=== PATIENT | male | born 1970 | race Caucasian/White ===

== ENCOUNTER 2017-08-09 05:36 | Emergency (ER) | payer OTHER ==
[~2017-08-09] VITALS: Ht 177.8 cm; Wt 78.0 kg
[2017-08-09 06:01] VITALS: BP 126/92; PULSE 80; RESP 18; TEMP 97.6; O2SAT 98
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
[2017-08-09 07:07] LABS: AUTOMATED NEUTROPHIL # 3.5 TH/MM3 (1.8-7.7); BASOPHIL # 0.1 TH/MM3 (0-0.2); BASOPHIL % 0.7 % (0.0-2.0); EOSINOPHIL # 0.4 TH/MM3 (0-0.4); EOSINOPHIL % 5.2 % (0.0-4.0); HEMATOCRIT 36.6 % (39.0-51.0); HEMOGLOBIN 12.8 GM/DL (13.0-17.0); LYMPH % 36.3 % (9.0-44.0); LYMPHOCYTE # 2.6 TH/MM3 (1.0-4.8); MEAN CELL VOLUME 100.6 FL (80.0-100.0); MEAN CORPUSCULAR HGB CONC 34.8 % (32.0-36.0); MEAN PLATELET VOLUME 7.4 FL (7.0-11.0); MONO % 9.6 % (0.0-8.0); MONOCYTE # 0.7 TH/MM3 (0-0.9); NEUT % 48.2 % (16.0-70.0); PLATELET COUNT 190 TH/MM3 (150-450); RED BLOOD COUNT 3.64 MIL/MM3 (4.50-5.90); RED CELL DISTRIBUTION WIDTH 12.2 % (11.6-17.2); WHITE BLOOD COUNT 7.3 TH/MM3 (4.0-11.0)
[2017-08-09 07:25] LABS: BICARBONATE 27.3 MEQ/L (21.0-32.0); CALCIUM 9.6 MG/DL (8.5-10.1); CREATININE 0.73 MG/DL (0.60-1.30)
[2017-08-09 14:10] VITALS: BP 110/60; PULSE 86; RESP 18; O2SAT 98
[2017-08-10 01:59] VITALS: BP 136/71; PULSE 103; RESP 18; O2SAT 99
== END 2017-08-10 02:29 ==
LOC: NEPD 05:36 → MERGE 05:36 → NEPJ 08-10 02:29
DX: F19.94 Other psychoactive substance use, unspecified with psychoactive substance-induced mood disorder (principal); F10.129 Alcohol abuse with intoxication, unspecified; F31.9 Bipolar disorder, unspecified; F41.9 Anxiety disorder, unspecified; F03.90 Unspecified dementia, unspecified severity, without behavioral disturbance, psychotic disturbance, mood disturbance, and anxiety; F20.9 Schizophrenia, unspecified; R56.9 Unspecified convulsions; F17.200 Nicotine dependence, unspecified, uncomplicated
CPT/HCPCS: 80048; 80307; 84443; 85025; 99285

== ENCOUNTER 2017-08-17 15:51 | Emergency (ER) | payer SELFPAY ==
[2017-08-17 16:13] VITALS: BP 134/83; PULSE 97; RESP 18; TEMP 98.5; O2SAT 97
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
== END 2017-08-17 20:28 | disposition home or self-care (01) ==
LOC: NEDAMB 15:51 → NEPD 20:28
DX: F10.229 Alcohol dependence with intoxication, unspecified (principal); R51 Headache; M54.2 Cervicalgia; M50.31 Other cervical disc degeneration, high cervical region; M50.322 Other cervical disc degeneration at C5-C6 level; F31.9 Bipolar disorder, unspecified; I10 Essential (primary) hypertension; F17.200 Nicotine dependence, unspecified, uncomplicated; W01.0XXA Fall on same level from slipping, tripping and stumbling without subsequent striking against object, initial encounter
CPT/HCPCS: 70450; 72125

== ENCOUNTER 2017-09-07 20:36 | Emergency (ER) | payer SELFPAY ==
[~2017-09-07] VITALS: Ht 170.2 cm; Wt 70.0 kg
[2017-09-07 21:02] VITALS: BP 135/85; PULSE 89; RESP 16; TEMP 97.7; O2SAT 99
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
== END 2017-09-08 06:38 | disposition home or self-care (01) ==
LOC: NEDAMB 20:36
DX: F10.220 Alcohol dependence with intoxication, uncomplicated (principal); F31.9 Bipolar disorder, unspecified; F03.90 Unspecified dementia, unspecified severity, without behavioral disturbance, psychotic disturbance, mood disturbance, and anxiety; I10 Essential (primary) hypertension
CPT/HCPCS: 99282

== ENCOUNTER 2017-09-28 23:09 | Emergency (ER) | payer SELFPAY ==
[~2017-09-28] VITALS: Ht 180.3 cm; Wt 72.0 kg
[2017-09-28 23:53] VITALS: BP 114/68; PULSE 95; RESP 16; TEMP 98.1; O2SAT 98
[2017-09-29 06:12] VITALS: BP 116/68; PULSE 82; RESP 20; TEMP 98.2; O2SAT 98
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
== END 2017-09-29 09:15 | disposition home or self-care (01) ==
LOC: NEDAMB 23:09 → NEPD 09-29 09:15
DX: F10.129 Alcohol abuse with intoxication, unspecified (principal); Y90.8 Blood alcohol level of 240 mg/100 ml or more; F31.9 Bipolar disorder, unspecified; F41.9 Anxiety disorder, unspecified; I10 Essential (primary) hypertension; F20.9 Schizophrenia, unspecified; F17.200 Nicotine dependence, unspecified, uncomplicated; F12.90 Cannabis use, unspecified, uncomplicated; F14.90 Cocaine use, unspecified, uncomplicated
CPT/HCPCS: 99281

== ENCOUNTER 2017-09-30 22:48 | Emergency (ER) | payer OTHER ==
[2017-09-30 23:40] LABS: ALBUMIN 3.9 GM/DL (3.4-5.0); ALT (GPT) 101 U/L (12-78); AST (GOT) 208 U/L (15-37); BLOOD UREA NITROGEN 5 MG/DL (7-18); CALCIUM 8.9 MG/DL (8.5-10.1); CHLORIDE 94 MEQ/L (98-107); CREATININE 0.83 MG/DL (0.60-1.30); GLOMERULAR FILTRATION RATE 98 ML/MIN (>89); GLUCOSE,RANDOM 110 MG/DL (74-106); SODIUM (NA) 133 MEQ/L (136-145)
[2017-09-30 23:45] LABS: ALKALINE PHOSPHATASE 114 U/L (45-117); TOTAL BILIRUBIN ADULT 0.4 MG/DL (0.2-1.0); TOTAL PROTEIN 8.3 GM/DL (6.4-8.2)
[2017-10-01 00:02] LABS: AUTOMATED NEUTROPHIL # 2.4 TH/MM3 (1.8-7.7); BASOPHIL # 0.1 TH/MM3 (0-0.2); BASOPHIL % 1.2 % (0.0-2.0); EOSINOPHIL # 0.1 TH/MM3 (0-0.4); EOSINOPHIL % 1.8 % (0.0-4.0); HEMATOCRIT 35.3 % (39.0-51.0); HEMOGLOBIN 12.3 GM/DL (13.0-17.0); LYMPH % 33.3 % (9.0-44.0); LYMPHOCYTE # 1.6 TH/MM3 (1.0-4.8); MEAN CELL VOLUME 99.1 FL (80.0-100.0); MEAN CORPUSCULAR HEMOGLOBIN 34.6 PG (27.0-34.0); MEAN CORPUSCULAR HGB CONC 34.9 % (32.0-36.0); MEAN PLATELET VOLUME 7.7 FL (7.0-11.0); MONO % 12.2 % (0.0-8.0); MONOCYTE # 0.6 TH/MM3 (0-0.9); NEUT % 51.5 % (16.0-70.0); PLATELET COUNT 84 TH/MM3 (150-450); RED BLOOD COUNT 3.57 MIL/MM3 (4.50-5.90); RED CELL DISTRIBUTION WIDTH 13.5 % (11.6-17.2); WHITE BLOOD COUNT 4.7 TH/MM3 (4.0-11.0)
[2017-10-01 00:23] LABS: BILIRUBIN, URINE NEG (NEG); BLOOD, URINE NEG (NEG); GLUCOSE,URINE NEG (NEG); KETONE, URINE NEG (NEG); NITRITE,URINE NEG (NEG); PH, URINE 5.5 (5.0-8.5); URINE COLOR YELLOW (YELLW/STRAW); URINE LEUKOCYTE ESTERASE NEG (NEG)
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
[2017-10-01 12:37] VITALS: BP 135/75; PULSE 88; RESP 14; O2SAT 97
[2017-10-01] MEDS ORDERED: NYST15T TOPICAL (12:48)
--- NOTE | 2017-10-01 12:48 | PD ---
Data Data Last Documented VS Vital Signs Date Time Temp Pulse Resp B/P (MAP) Pulse Ox O2 Delivery O2 Flow Rate FiO2 10/01/17 13:43 10/01/17 12:37 88 14 97 Room Air Orders Orders Complete Blood Count With Diff (09/30/17 23:09) Comprehensive Metabolic Panel (09/30/17 23:09) Urinalysis - C+S If Indicated (09/30/17 23:09) Psych Screen (09/30/17 23:09) Drug Screen, Random Urine (09/30/17 23:09) Alcohol (Ethanol) (09/30/17 23:09) Diet Regular Basic (10/01/17 Breakfast) Ed Discharge Order (10/01/17 12:48) Labs Laboratory Tests Test 09/30/17:18 10/01/17 00:02 White Blood Count 4.7 TH/MM3 Red Blood Count 3.57 MIL/MM3 Hemoglobin 12.3 GM/DL Hematocrit 35.3 % Mean Corpuscular Volume 99.1 FL Mean Corpuscular Hemoglobin 34.6 PG Mean Corpuscular Hemoglobin Concent 34.9 % Red Cell Distribution Width 13.5 % Platelet Count 84 TH/MM3 Mean Platelet Volume 7.7 FL Neutrophils (%) (Auto) 51.5 % Lymphocytes (%) (Auto) 33.3 % Monocytes (%) (Auto) 12.2 % Eosinophils (%) (Auto) 1.8 % Basophils (%) (Auto) 1.2 % Neutrophils # (Auto) 2.4 TH/MM3 Lymphocytes # (Auto) 1.6 TH/MM3 Monocytes # (Auto) 0.6 TH/MM3 Eosinophils # (Auto) 0.1 TH/MM3 Basophils # (Auto) 0.1 TH/MM3 CBC Comment AUTO DIFF Differential Comment AUTO DIFF CONFIRMED Platelet Estimate LOW Platelet Morphology Comment NORMAL Blood Urea Nitrogen 5 MG/DL Creatinine 0.83 MG/DL Random Glucose 110 MG/DL Total Protein 8.3 GM/DL Albumin 3.9 GM/DL Calcium Level 8.9 MG/DL Alkaline Phosphatase 114 U/L Aspartate Amino Transf (AST/SGOT) 208 U/L Alanine Aminotransferase (ALT/SGPT) 101 U/L Total Bilirubin 0.4 MG/DL Sodium Level 133 MEQ/L Potassium Level 3.5 MEQ/L Chloride Level 94 MEQ/L Carbon Dioxide Level 27.0 MEQ/L Anion Gap 12 MEQ/L Estimat Glomerular Filtration Rate 98 ML/MIN Ethyl Alcohol Level 390 MG/DL Urine Color YELLOW Urine Turbidity CLEAR Urine pH 5.5 Urine Specific [place] 1.005 Urine Protein NEG mg/dL Urine Glucose (UA) NEG mg/dL Urine Ketones NEG mg/dL Urine Occult Blood NEG Urine Nitrite NEG Urine Bilirubin NEG Urine Urobilinogen LESS THAN 2.0 MG/DL Urine Leukocyte Esterase NEG Microscopic Urinalysis Comment CULT NOT INDICATED Urine Opiates Screen NEG Urine Barbiturates Screen NEG Urine Amphetamines Screen NEG Urine Benzodiazepines Screen NEG Urine Cocaine Screen NEG Urine Cannabinoids Screen NEG MDM Supervised Visit with NOLBERTO: Yes Narrative Course Patient seen and examined by me at 12:40 PM, was just seen by Edmundo MILLER for the psychiatric service she does not believe the patient be up to himself nor others, he has multiple presentations this emergency department for alcohol and alcohol-related events. He is clinically sober at this time is been given ample opportunity metabolize probably all of the alcohol that was in his system when he was here, at this time he adamantly denies suicidal or homicidal ideation states he wants to get help for his alcohol, he has no medical complaint to warrant further workup at this time. He was made small note of a tinea capitis will be placed on nystatin cream. He is stable for discharge. I have lifted his García act as he no longer meets criteria for involuntary stay in the hospital Diagnosis Primary Impression: Medical clearance for psychiatric admission Additional Impression: Alcohol dependence with acute alcoholic intoxication Qualified Codes: F10.220 - Alcohol dependence with intoxication, uncomplicated Referrals: [facility] Pt SpecificInfo: Prescription(s) given Scripts Nystatin Topical (Nystatin Topical) 100,000 unit/gm Cream 1 APPLIC TOPICAL BID for Infection, #15 GM 0 Refills Prov: Alexei Peralta MD 10/01/17 Disposition: 01 DISCHARGE HOME Condition: Stable Alexei Peralta MD Oct 01, 2017 12:48
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
== END 2017-10-01 13:44 | disposition home or self-care (01) ==
LOC: NEDAMB 22:48 → NEPD 10-01 13:44
DX: F10.220 Alcohol dependence with intoxication, uncomplicated (principal); Y90.8 Blood alcohol level of 240 mg/100 ml or more; R45.850 Homicidal ideations; F31.9 Bipolar disorder, unspecified; F41.9 Anxiety disorder, unspecified; I10 Essential (primary) hypertension; F20.9 Schizophrenia, unspecified; F17.200 Nicotine dependence, unspecified, uncomplicated; Z59.0 Homelessness
CPT/HCPCS: 80053; 80307; 81001; 85025; 99284

== ENCOUNTER 2017-10-06 21:29 | Emergency (ER) | payer OTHER ==
[~2017-10-06] VITALS: Ht 165.1 cm; Wt 70.0 kg
[~2017-10-06 21:29] MED LIST: NYST15T TOPICAL
[2017-10-06 21:37] VITALS: BP 128/79; PULSE 88; RESP 16; TEMP 98.2; O2SAT 99
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
--- NOTE | 2017-10-07 06:09 | PD ---
Physical Exam Date Seen by Provider: Oct 07, 2017 Time Seen by Provider: 06:08 Data Data Last Documented VS Vital Signs Date Time Temp Pulse Resp B/P (MAP) Pulse Ox O2 Delivery O2 Flow Rate FiO2 10/06/17 21:37 98.2 88 16 128/79 (95) 99 Orders Orders Ed Discharge Order (10/07/17 06:07) [facility] Medical Record Reviewed: Yes Supervised Visit with NOLBERTO: Yes Differential Diagnosis Differential diagnoses: Alcohol intoxication, substance abuse, electrolyte abnormality, malingering Narrative Course The patient now is sobered up in the ER. Is up and ambulatory to the bathroom with a steady gait. The patient now has decided not to be evaluated by a psychiatrist after having a good night sleep. The patient denies any suicidal homicidal ideation. There is no indication for involuntary admission. The patient is not a threat to himself or others. The patient was intoxicated and now is sober. Diagnosis Primary Impression: Alcohol dependence with acute alcoholic intoxication Qualified Codes: F10.220 - Alcohol dependence with intoxication, uncomplicated Patient Instructions: General Instructions Additional Instruction: Rest. Increase fluids. Avoid alcohol. Avoid illegal substances. Follow-up with [facility] for detox. Do not operate a car or any heavy machinery under the influence of alcohol or drugs. Follow-up with a medical doctor this week. Return to the ER for emergencies Scripts No Active Prescriptions or Reported Meds Disposition: 01 DISCHARGE HOME Condition: Stable Sheldon Skinner Oct 07, 2017 06:09
== END 2017-10-07 06:30 | disposition home or self-care (01) ==
LOC: NEPD 21:29
DX: F10.220 Alcohol dependence with intoxication, uncomplicated (principal); R45.850 Homicidal ideations; F31.9 Bipolar disorder, unspecified; F41.9 Anxiety disorder, unspecified; I10 Essential (primary) hypertension; F20.9 Schizophrenia, unspecified; F17.200 Nicotine dependence, unspecified, uncomplicated; F12.90 Cannabis use, unspecified, uncomplicated; F14.90 Cocaine use, unspecified, uncomplicated
CPT/HCPCS: 99282

== ENCOUNTER 2017-10-08 02:14 | Emergency (ER) | payer OTHER ==
[2017-10-08 02:30] VITALS: BP 143/82; PULSE 82; RESP 20; TEMP 98.1; O2SAT 97
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
[2017-10-08 07:10] VITALS: BP 107/60; PULSE 73; RESP 16; O2SAT 96
--- NOTE | 2017-10-08 08:46 | PD ---
Physical Exam Date Seen by Provider: Oct 08, 2017 Time Seen by Provider: 08:34 Narrative 47-year-old male previously medically cleared for psychiatric evaluation. Patient has been seen by psychiatric staff and deemed to be psychiatrically stable for discharge. Patient is to follow-up with [facility]. Further psychiatric follow-up will be based on the psychiatric note. Data Data Last Documented VS Vital Signs Date Time Temp Pulse Resp B/P (MAP) Pulse Ox O2 Delivery O2 Flow Rate FiO2 10/08/17 07:10 73 16 107/60 (76) 96 Room Air 10/08/17 02:30 98.1 Orders Orders Alcohol (Ethanol) (10/08/17 02:33) Diet Regular Basic (10/08/17 Breakfast) Labs Laboratory Tests Test 10/08/17 02:30 Ethyl Alcohol Level 391 MG/DL [facility] Medical Record Reviewed: Yes Supervised Visit with NOLBERTO: Yes Diagnosis Primary Impression: Alcohol dependence with acute alcoholic intoxication Qualified Codes: F10.220 - Alcohol dependence with intoxication, uncomplicated Additional Impression: Medical clearance for psychiatric admission [facility]errals: [facility] Patient Instructions: General Instructions Scripts No Active Prescriptions or Reported Meds Disposition: 01 DISCHARGE HOME Condition: Stable Srinivas Cheatham Oct 08, 2017 08:46
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
== END 2017-10-08 11:16 | disposition home or self-care (01) ==
LOC: NEPD 02:14
DX: F10.220 Alcohol dependence with intoxication, uncomplicated (principal); F17.200 Nicotine dependence, unspecified, uncomplicated; Y90.8 Blood alcohol level of 240 mg/100 ml or more
CPT/HCPCS: 80307; 99284

== ENCOUNTER 2017-10-16 03:43 | Emergency (ER) | payer SELFPAY ==
[~2017-10-16] VITALS: Ht 177.8 cm; Wt 80.0 kg
[2017-10-16 04:38] VITALS: BP 142/74; PULSE 94; RESP 16; TEMP 98.9; O2SAT 99
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
== END 2017-10-16 08:29 | disposition home or self-care (01) ==
LOC: NEPE 03:43
DX: F10.10 Alcohol abuse, uncomplicated (principal); F31.9 Bipolar disorder, unspecified; F41.9 Anxiety disorder, unspecified; F03.90 Unspecified dementia, unspecified severity, without behavioral disturbance, psychotic disturbance, mood disturbance, and anxiety; I10 Essential (primary) hypertension; F20.9 Schizophrenia, unspecified; F17.200 Nicotine dependence, unspecified, uncomplicated; Z86.69 Personal history of other diseases of the nervous system and sense organs
CPT/HCPCS: 99281; E0113

== ENCOUNTER 2017-10-25 19:43 | Emergency (ER) | payer OTHER ==
[~2017-10-25] VITALS: Ht 177.8 cm; Wt 80.0 kg
[2017-10-25 19:50] VITALS: BP 118/69; PULSE 97; RESP 18; TEMP 98.4; O2SAT 95
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
[2017-10-25 20:36] LABS: AUTOMATED NEUTROPHIL # 2.2 TH/MM3 (1.8-7.7); BASOPHIL % 0.8 % (0.0-2.0); EOSINOPHIL # 0.1 TH/MM3 (0-0.4); EOSINOPHIL % 2.6 % (0.0-4.0); HEMOGLOBIN 12.3 GM/DL (13.0-17.0); LYMPHOCYTE # 1.9 TH/MM3 (1.0-4.8); MEAN PLATELET VOLUME 7.7 FL (7.0-11.0); MONOCYTE # 0.4 TH/MM3 (0-0.9); NEUT % 47.6 % (16.0-70.0); PLATELET COUNT 95 TH/MM3 (150-450); RED BLOOD COUNT 3.61 MIL/MM3 (4.50-5.90); RED CELL DISTRIBUTION WIDTH 14.3 % (11.6-17.2); WHITE BLOOD COUNT 4.7 TH/MM3 (4.0-11.0)
[2017-10-25 20:56] LABS: BICARBONATE 25.1 MEQ/L (21.0-32.0); CALCIUM 9.2 MG/DL (8.5-10.1); CREATININE 1.08 MG/DL (0.60-1.30)
[2017-10-26 00:41] VITALS: BP 109/56; PULSE 81; RESP 18; TEMP 98.4; O2SAT 97
[2017-10-26 04:50] VITALS: BP 123/59; PULSE 78; RESP 17; TEMP 97.5; O2SAT 96
--- NOTE | 2017-10-26 09:25 | PD ---
Physical Exam Date Seen by Provider: Oct 26, 2017 Time Seen by Provider: 09:23 Narrative For full history and physical examination please see previous notes. Data Data Last Documented VS Vital Signs Date Time Temp Pulse Resp B/P (MAP) Pulse Ox O2 Delivery O2 Flow Rate FiO2 10/26/17 04:50 97.5 78 17 123/59 (80) 96 Room Air Orders Orders Complete Blood Count With Diff (10/25/17 19:55) Thyroid Stimulating Hormone (10/25/17 19:55) Basic Metabolic Panel (Bmp) (10/25/17 19:55) Psych Screen (10/25/17 19:55) Drug Screen, Random Urine (10/25/17 19:55) Alcohol (Ethanol) (10/25/17 19:55) Diet Regular Basic (10/26/17 Breakfast) Ed Discharge Order (10/26/17 09:23) Labs Laboratory Tests Test 10/25/17 20:10 White Blood Count 4.7 TH/MM3 Red Blood Count 3.61 MIL/MM3 Hemoglobin 12.3 GM/DL Hematocrit 35.0 % Mean Corpuscular Volume 97.0 FL Mean Corpuscular Hemoglobin 34.0 PG Mean Corpuscular Hemoglobin Concent 35.0 % Red Cell Distribution Width 14.3 % Platelet Count 95 TH/MM3 Mean Platelet Volume 7.7 FL Neutrophils (%) (Auto) 47.6 % Lymphocytes (%) (Auto) 40.0 % Monocytes (%) (Auto) 9.0 % Eosinophils (%) (Auto) 2.6 % Basophils (%) (Auto) 0.8 % Neutrophils # (Auto) 2.2 TH/MM3 Lymphocytes # (Auto) 1.9 TH/MM3 Monocytes # (Auto) 0.4 TH/MM3 Eosinophils # (Auto) 0.1 TH/MM3 Basophils # (Auto) 0.0 TH/MM3 CBC Comment AUTO DIFF Differential Comment AUTO DIFF CONFIRMED Platelet Estimate LOW Platelet Morphology Comment NORMAL Blood Urea Nitrogen 7 MG/DL Creatinine 1.08 MG/DL Random Glucose 93 MG/DL Calcium Level 9.2 MG/DL Sodium Level 130 MEQ/L Potassium Level 3.8 MEQ/L Chloride Level 94 MEQ/L Carbon Dioxide Level 25.1 MEQ/L Anion Gap 11 MEQ/L Estimat Glomerular Filtration Rate 73 ML/MIN Thyroid Stimulating Hormone 3rd Gen 2.680 uIU/ML Urine Opiates Screen NEG Urine Barbiturates Screen NEG Urine Amphetamines Screen NEG Urine Benzodiazepines Screen NEG Urine Cocaine Screen NEG Urine Cannabinoids Screen POS Ethyl Alcohol Level 417 MG/DL [facility] Medical Record Reviewed: Yes Supervised Visit with NOLBERTO: No Interpretation(s) Laboratory Tests Test 10/25/17 20:10 White Blood Count 4.7 TH/MM3 Red Blood Count 3.61 MIL/MM3 Hemoglobin 12.3 GM/DL Hematocrit 35.0 % Mean Corpuscular Volume 97.0 FL Mean Corpuscular Hemoglobin 34.0 PG Mean Corpuscular Hemoglobin Concent 35.0 % Red Cell Distribution Width 14.3 % Platelet Count 95 TH/MM3 Mean Platelet Volume 7.7 FL Neutrophils (%) (Auto) 47.6 % Lymphocytes (%) (Auto) 40.0 % Monocytes (%) (Auto) 9.0 % Eosinophils (%) (Auto) 2.6 % Basophils (%) (Auto) 0.8 % Neutrophils # (Auto) 2.2 TH/MM3 Lymphocytes # (Auto) 1.9 TH/MM3 Monocytes # (Auto) 0.4 TH/MM3 Eosinophils # (Auto) 0.1 TH/MM3 Basophils # (Auto) 0.0 TH/MM3 CBC Comment AUTO DIFF Differential Comment AUTO DIFF CONFIRMED Platelet Estimate LOW Platelet Morphology Comment NORMAL Blood Urea Nitrogen 7 MG/DL Creatinine 1.08 MG/DL Random Glucose 93 MG/DL Calcium Level 9.2 MG/DL Sodium Level 130 MEQ/L Potassium Level 3.8 MEQ/L Chloride Level 94 MEQ/L Carbon Dioxide Level 25.1 MEQ/L Anion Gap 11 MEQ/L Estimat Glomerular Filtration Rate 73 ML/MIN Thyroid Stimulating Hormone 3rd Gen 2.680 uIU/ML Urine Opiates Screen NEG Urine Barbiturates Screen NEG Urine Amphetamines Screen NEG Urine Benzodiazepines Screen NEG Urine Cocaine Screen NEG Urine Cannabinoids Screen POS Ethyl Alcohol Level 417 MG/DL Vital Signs Date Time Temp Pulse Resp B/P (MAP) Pulse Ox O2 Delivery O2 Flow Rate FiO2 10/26/17 04:50 97.5 78 17 123/59 (80) 96 Room Air 10/26/17 00:41 98.4 81 18 109/56 (73) 97 Room Air 10/25/17 19:50 98.4 97 18 118/69 (85) 95 Narrative Course Patient is a 47-year-old male that was brought into emergency department under García act for psychiatric evaluation. Patient was seen and evaluated, medically cleared. He was then evaluated by psychiatry. García act was lifted patient was diagnosed with alcohol dependence and intoxication. Patient to follow-up with [facility], he is stable for discharge. Diagnosis Primary Impression: Alcohol dependence with acute alcoholic intoxication Qualified Codes: F10.220 - Alcohol dependence with intoxication, uncomplicated Additional Impression: Substance induced mood disorder [facility]errals: [facility] 1 day Patient Instructions: General Instructions Additional Instruction: Follow-up with [facility] Return to emergency department for any new worsening symptoms Avoid excessive alcohol intake, avoid alcohol altogether Med/Other Pt SpecificInfo: No Change to Meds Scripts No Active Prescriptions or Reported Meds Disposition: 01 DISCHARGE HOME Condition: Stable Roxy Greer Oct 26, 2017 09:25
--- NOTE | 2017-10-26 15:16 | PD.PSY.CON ---
Provisional Diagnosis Admission Date [place]. Alcohol use disorder, cannabis use disorder, K2 use the alcohol-induced mood disorder [place] II. Deferred History of Present Illness Service Psychiatry Consult Requested By ER, Reason for Consult Under García act Primary Care Physician No Primary Care Physician HPI Patient was seen this morning at 7:30 AM The patient is a 37 year-old man, homeless, unemployed, with long- standing history of alcohol abuse and substance induced mood disorder, multiple ER visits in the context of alcohol intoxication, self-reported history of schizophrenia, previous psychiatric hospitalizations, 2 previous suicide attempts, no significant medical history, who presents to the ED under a García Act for psychiatric evaluation. Pt states he has been drinking alcohol and smoking K2. He wants to kill his girlfriends brother "because he is a mirlande." Pt offers no plan. Denies any suicidal ideations. No other symptoms to report. Patient is now clinically sober. Patient reports feeling much better, denies depression, he denies anhedonia, denies anxiety, denies suicidal and homicidal ideation, he denies visual and auditory hallucinations. The patient reports drinking alcohol every day, he uses K2 and marijuana occasionally, he has history of withdrawal. No withdrawal symptoms at the moment. Review of Systems Constitutional: DENIES: Diaphoretic episodes, Fatigue, Fever, Weight gain, Weight loss, Chills, Dizziness, Change in appetite, Night Sweats Endocrine: DENIES: Heat/cold intolerance, Polydipsia, Polyuria, Polyphagia Eyes: DENIES: Blurred vision, Diplopia, Eye inflammation, Eye pain, Vision loss , Photosensitivity, Double Vision Ears, nose, mouth, throat: DENIES: Tinnitus, Hearing loss, Vertigo, Nasal discharge, Oral lesions, Throat pain, Hoarseness, Ear Pain, Running Nose, Epistaxis, Sinus Pain, Toothache, Odynophagia Respiratory: DENIES: Apneas, Cough, Snoring, Wheezing, Hemoptysis, Sputum production, Shortness of breath Cardiovascular: DENIES: Chest pain, Palpitations, Syncope, Dyspnea on Exertion , PND, Lower Extremity Edema, Orthopnea, Claudication Gastrointestinal: DENIES: Abdominal pain, Black stools, Bloody stools, Constipation, Diarrhea, Nausea, Vomiting, Difficulty Swallowing, Anorexia Genitourinary: DENIES: Sexual dysfunction, Urinary frequency, Urinary incontinence, Urgency, Hematuria, Dysuria, Nocturia, Penile Discharge, Testicular Pain, Testicular Swelling Musculoskeletal: DENIES: Joint pain, Muscle aches, Stiffness, Joint Swelling, Back pain, Neck pain Integumentary: DENIES: Abnormal pigmentation, Nail changes, Pruritus, Rash Hematologic/lymphatic: DENIES: Bruising, Lymphadenopathy Immunologic/allergic: DENIES: Eczema, Urticaria Neurologic: DENIES: Abnormal gait, Headache, Localized weakness, Paresthesias, Seizures, Speech Problems, Tremor, Poor Balance Psychiatric: DENIES: Anxiety, Confusion, Mood changes, Depression, Hallucinations, Agitation, Suicidal Ideation, Homicidal Ideation, Delusions Past Family Social History Coded Allergies: No Known Allergies (Verified Adverse Reaction, Unknown, 10/16/17) No Active Prescriptions or Reported Meds Family Psych History Mother has depression Social History Patient was born and raised in [place], he is homeless, unemployed, single Physical Exam Vital Signs Vital Signs Date Time Temp Pulse Resp B/P (MAP) Pulse Ox O2 Delivery O2 Flow Rate FiO2 10/26/17 04:50 97.5 78 17 123/59 (80) 96 Room Air Lab Results Test 10/25/17 20:10 White Blood Count 4.7 TH/MM3 Red Blood Count 3.61 MIL/MM3 Hemoglobin 12.3 GM/DL Hematocrit 35.0 % Mean Corpuscular Volume 97.0 FL Mean Corpuscular Hemoglobin 34.0 PG Mean Corpuscular Hemoglobin Concent 35.0 % Red Cell Distribution Width 14.3 % Platelet Count 95 TH/MM3 Mean Platelet Volume 7.7 FL Neutrophils (%) (Auto) 47.6 % Lymphocytes (%) (Auto) 40.0 % Monocytes (%) (Auto) 9.0 % Eosinophils (%) (Auto) 2.6 % Basophils (%) (Auto) 0.8 % Neutrophils # (Auto) 2.2 TH/MM3 Lymphocytes # (Auto) 1.9 TH/MM3 Monocytes # (Auto) 0.4 TH/MM3 Eosinophils # (Auto) 0.1 TH/MM3 Basophils # (Auto) 0.0 TH/MM3 CBC Comment AUTO DIFF Differential Comment AUTO DIFF CONFIRMED Platelet Estimate LOW Platelet Morphology Comment NORMAL Blood Urea Nitrogen 7 MG/DL Creatinine 1.08 MG/DL Random Glucose 93 MG/DL Calcium Level 9.2 MG/DL Sodium Level 130 MEQ/L Potassium Level 3.8 MEQ/L Chloride Level 94 MEQ/L Carbon Dioxide Level 25.1 MEQ/L Anion Gap 11 MEQ/L Estimat Glomerular Filtration Rate 73 ML/MIN Thyroid Stimulating Hormone 3rd Gen 2.680 uIU/ML Urine Opiates Screen NEG Urine Barbiturates Screen NEG Urine Amphetamines Screen NEG Urine Benzodiazepines Screen NEG Urine Cocaine Screen NEG Urine Cannabinoids Screen POS Ethyl Alcohol Level 417 MG/DL Mental Status Examination Appearance: Appropriate Assessment & Plan Problem List: (1) Substance induced mood disorder ICD Codes: F19.94 - Other psychoactive substance use, unspecified with psychoactive substance-induced mood disorder Status: Acute Assessment & Plan: Patient is now clinically sober, he denies depression, denies anxiety, denies psychosis, he denies suicidal and homicidal ideation. He denies visual and auditory hallucinations. His recent suicidal ideation was most probably the result of acute alcohol and K2 intoxication. He does not meet criteria for involuntary psychiatric admission. Will be referred to [facility]. [place] act will be lifted Assessment & Plan Estimated LOS: Jimmy Wells MD Oct 26, 2017 15:16
== END 2017-10-26 09:58 | disposition home or self-care (01) ==
LOC: NEDAMB 19:43 → NEPJ 10-26 09:58
DX: F10.220 Alcohol dependence with intoxication, uncomplicated (principal); F19.94 Other psychoactive substance use, unspecified with psychoactive substance-induced mood disorder; F17.210 Nicotine dependence, cigarettes, uncomplicated; F12.90 Cannabis use, unspecified, uncomplicated; I10 Essential (primary) hypertension
CPT/HCPCS: 80048; 80307; 84443; 85025; 99284